=== PATIENT | male | born 1940 | race Caucasian/White ===

== ENCOUNTER 2019-02-22 12:00 | Emergency (ER) | payer MEDICARE, OTHER ==
[2019-02-22] MEDS ORDERED: Sodium Chloride 0.9% 10 ML Syringe FLUSH PRN (12:15)
[2019-02-22] MEDS ORDERED: Famotidine 20 MG/2 ML SDV IVPUSH ONE (12:15)
--- NOTE | 2019-02-22 12:15 | EDM.PDOC ---
ED HPI GENERAL MEDICAL PROBLEM - General Chief Complaint: Cardiovascular Problem Stated Complaint: shortness of breath Time Seen by Provider: 02/22/19 12:00 Source of Information: Reports: Patient. Denies: Old Records (No [facility] records available) History Limitations: Reports: No Limitations - History of Present Illness INITIAL COMMENTS - FREE TEXT/NARRATIVE: Patient drove himself to the emergency room via private automobile for evaluation of progressive nonspecific dyspnea during the last 2 days known history of significant chronic anemia possibly secondary to his renal disease and iron deficiency with negative recent workup as below. He believes that his symptoms are based on his anemia and is visiting the area from [place] at this time. The patient denies any chest pain/pressure, heart flutter, orthostasis, orthopnea, diaphoresis, paresthesias, or any other anginal-type symptoms, however note dyspnea and decreased exercise tolerance with occasional intermittent dizziness during the last couple of days as above. No recent history of abdominal pain, heartburn, nausea, diarrhea, melena, gross hematochezia, or any food intolerance, including fatty foods, etc., although he does have chronic dark stools secondary to his iron supplementation. The patient also denies any recent fever, cough, wheezing, etc.. He denies any gross hematuria, colic, or other UTI symptoms. The patient also denies any recent fever, cough, wheezing, dyspnea, etc.. No apparent pain or other discomfort at this time. Onset: Gradual Duration: Constant, Getting Worse Location: Reports: Other (No pain) Quality: Reports: Same as Previous Episode Severity: Moderate Improves with: Reports: Rest Worsens with: Reports: Movement (Activity) Context: Reports: Other (As above). Denies: Sick Contact, Trauma Associated Symptoms: Reports: Shortness of Breath. Denies: Confusion, Chest Pain, Diaphoresis, Fever/Chills, Headaches, Loss of Appetite, Malaise, Nausea/ Vomiting, Rash, Syncope, Weakness Treatments REPTILE KEEPER: Reports: Other (see below) (None) - Related Data Allergies Allergy/AdvReac Type Severity Reaction Status Date / Time No Known Allergies Allergy Verified 02/22/19 12:14 Home Meds: Home Meds Acarbose [Precose] 0.5 tab PO BID 02/22/19 [History] Acetaminophen 2 tab PO Q6HR PRN 02/22/19 [History] Aspirin [Halfprin] 81 mg PO DAILY 02/22/19 [History] Atenolol 1 tab PO DAILY 02/22/19 [History] Calcium Carbonate/Vitamin D3 [Os-Wisam 500+D] 1 cap PO DAILY 02/22/19 [History] Carboxymethylcellulose Sodium [Refresh Liquigel 1%] 1 drop EYEBOTH Q4HR PRN [History] Ergocalciferol (Vitamin D2) [Vitamin D2] 1 cap PO WEEKLY 02/22/19 [History] Febuxostat [Uloric] 1 tab PO DAILY 02/22/19 [History] Furosemide 80 mg PO BID 02/22/19 [History] Insulin Isophane NPH, Human [NovoLIN N] 10 units SUBCUT BID 02/22/19 [History] Iron Polysaccharide Complex [Pro Fe] 1 cap PO DAILY 02/22/19 [History] Linagliptin [Tradjenta] 1 tab PO DAILY 02/22/19 [History] Nitroglycerin [Nitrostat] 0.4 mg SL ASDIRECTED 02/22/19 [History] Omeprazole 20 mg PO BIDAC 02/22/19 [History] Prednisolon/Gatiflox/Bromfenac [Pred 1%-Gati 0.5%-Bromf 0.075%] 1 drop EYEBOTH DAILY 02/22/19 [History] Vit A/Vit C/Vit E/Zinc/Copper [Preservision] 1 cap PO DAILY 02/22/19 [History] atorvaSTATin Calcium [Atorvastatin Calcium] 80 mg PO ACDINNER 02/22/19 [History] Past Medical History HEENT History: Reports: Cataract, Hard of Hearing, Impaired Vision, Macular Degeneration, Other (See Below). Denies: Allergic Rhinitis, Glaucoma, Otitis Media, Retinal Detachment Other HEENT History: Patient wears glasses. Bilateral hearing aid therapy. No diabetic retinopathy. Cardiovascular History: Reports: Arrhythmia, CAD, Heart Failure, Heart Murmur, High Cholesterol, Hypertension, Pacemaker, Other (See Below). Denies: Afib, Aneurysm, Blood Clots/VTE/DVT, Bypass, OK, PTCA, PVD, Stents, Syncope Other Cardiovascular History: Pacemaker required secondary to complications from aortic valve replacement as below with some type of arrhythmia? Bradycardia. Chronic dependent edema. Respiratory History: Reports: Bronchitis, Recurrent, COPD, Intubation, Previous , Other (See Below). Denies: Asthma, Intubation, Difficult, PE, Pneumothorax, Sleep Apnea, TB Other Respiratory History: Multiple previous refractions including multiple left rib fractures in the past and right-sided rib fracture in June 2018. Gastrointestinal History: Reports: Colon Polyp, Diverticulosis, Gastritis, GERD , GI Bleed, PUD, Other (See Below). Denies: Celiac Disease, Cholelithiasis, Chronic Constipation, Chronic Diarrhea, Fecal Incontinence, Hepatitis, Hiatal Hernia, Inflammatory Bowel Disease, Irritable Bowel Syndrome, Jaundice, Pancreatitis Other Gastrointestinal History: Recurrent duodenal cultures requiring both previous cauterizations and surgeries in the past since August 1999 and September 1999 with subsequent resolution however recurrent GI bleeds since 2013 as below. Unknown type of recurrent colonic polyps with last colonoscopy in September 2017 showing no recurrence. Genitourinary History: Reports: BPH, Chronic Renal Insuffiency, Diabetic Nephropathy, Prostate Disorder, Urinary Incontinence, UTI, Recurrent, Other ( See Below). Denies: Acute Renal Failure, Renal Calculus, Retention, Urinary, STD Other Genitourinary History: Urinary incontinence after TURP. Incidental prostate cancer at time of TURP with therapy to this point and normal PSAs by patient history. Musculoskeletal History: Reports: Arthritis, Back Pain, Chronic, Fracture, Neck Pain, Chronic, Osteoarthritis, Other (See Below). Denies: Amputation, Gout, Osteoporosis, RA, SLE Other Musculoskeletal History: Left foot fracture 5 and right foot surgery at age 4 with no surgeries required. Right thumb fracture at age 16. Left hip fracture in April 2017 with surgery as below. Bilateral rib fractures as above. Neurological History: Reports: Concussion, CVA, Head Trauma, Neuropathy, Diabetic, Neuropathy, Peripheral, Other (See Below). 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 Skull fracture at age 11. Previous head concussions 7. Psychiatric History: Reports: None. Denies: Abuse, Victim of, ADD, ADHD, Addiction, Anxiety, Depression, Psych Hospitalization(s), Psychosis, PTSD, Suicide Attempt, Suicidal Ideation Endocrine/Metabolic History: Reports: Diabetes, Type II, IDDM, Obesity/BMI 30+, Vitamin D Deficiency. Denies: Diabetes, Gestational, Diabetes Mellitus, Type 3c , Hypothyroidism, Osteopenia, Osteoporosis Hematologic History: Reports: Anemia, Blood Transfusion(s), Iron Deficiency, Other (See Below). Denies: B12 Deficiency, Folic Acid Other Hematologic History: Multiple history of blood transfusions in August 1999 and then again in September 1999 with audible subsequent blood transfusions since 2014 with last Blood transfusion of 3 units on 12/29/18. Immunologic History: Denies: AIDS, HIV, SLE Oncologic (Cancer) History: Reports: Basal Cell Carcinoma, Prostate, Other (See Below). Denies: Colon, Hodgkin's Lymphoma, Leukemia, Lymphoma, Malignant Melanoma, Metastatic, Non-Hodgkin's Lymphoma, Squamous Cell Carcinoma Other Oncologic History: Incidental prostate cancer at time of TURP in about 2013 with no treatment required to this point as above. Extensive excision of unknown type of skin cancer in about 2013 with basal cell carcinoma removed from the face in about 2009. Dermatologic History: Reports: Seborrheic Dermatitis. Denies: Eczema, Psoriasis - Infectious Disease History Infectious Disease History: Reports: Chicken Pox, Measles. Denies: C-Difficile , Mononucleosis, MRSA, Mumps, Pertussis (Whooping Cough), Rheumatic Fever, Rubella, Scarlet Fever, Shingles, TB, VRE - Past Surgical History Head Surgeries/Procedures: Reports: None HEENT Surgical History: Reports: Adenoidectomy, Cataract Surgery, Oral Surgery, Tonsillectomy, Other (See Below). Denies: Eye Surgery, Laser Surgery, LASIK, Myringotomy w Tube(s), Naso-Sinus Surgery Other HEENT Surgeries/Procedures: Right cataract surgery on 01/09/19 with left cataract surgery on 01/23/19. Complete teeth extraction with complete dentures uppers and lowers. Tonsillectomy and adenoidectomy at age 6. Cardiovascular Surgical History: Reports: Pacer, Valve Replacement, Other (See Below) Other Cardiovascular Surgeries/Procedures: Aortic valve replacement with prosthetic bovine valve with postoperative arrhythmia requiring pacemaker placement with both surgeries on 10/03/17. Respiratory Surgical History: Reports: None. Denies: Thoracentesis GI Surgical History: Reports: Appendectomy, Colonoscopy, EGD, Polypectomy, Other (See Below). Denies: Cholecystectomy, Hernia, Abdominal, Hernia, Inguinal , Hernia Repair/Other Other GI Surgeries/Procedures: Appendectomy at age 10 Multiple previous EGDs with last EGD on 12/29/18. Videoscopic "pill" GI evaluation on 01/30/19. Multiple cauterizations of duodenal ulcers initially in August and then again in September 1999 with subsequent procedures required since 2013 including surgical clip in 2015. Multiple previous colonoscopies requiring polypectomies as above with last colonoscopy in September 2017, which was clear. Male Surgical History: Reports: TURP-Transurethral Resection of Prostate, Other (See Below). Denies: Circumcision, Prostate Biopsy, Vasectomy Other Male Surgeries/Procedures: TURP in 2013. Endocrine Surgical History: Reports: None. Denies: Thyroid Biopsy Neurological Surgical History: Reports: None. Denies: C-Spine, Discectomy, Laminectomy, Lumbar Spine, Sacral Spine, Spinal Fusion, Thoracic Spine, Vertebroplasty Musculoskeletal Surgical History: Reports: Arthroscopic Knee, Arthroscopic Procedure, Hip Replacement, Joint Replacement, Other (See Below). Denies: Carpal Tunnel, Ganglion Cyst, Knee Replacement, ORIF, Shoulder Surgery Other Musculoskeletal Surgeries/Procedures:: Left arthroscopic knee surgery in 1976. Left hip TEP secondary to hip fracture in April 2017. Oncologic Surgical History: Reports: Other (See Below) Other Oncologic Surgeries/Procedures: Multiple skin excisions for skin cancer as above. Dermatological Surgical History: Reports: Skin Biopsy, Other (See Below) Other Dermatological Surgeries/Procedures: Skin excisions as above. - Past Imaging History Past Imaging History: Reports: Other (See Below) (Bone marrow needle aspiration and biopsy in 1981 for unknown reason.) - History Comment History Comment: Agent [place] exposure. Social & Family History - Family History Cardiac: Reports: Other (See Below) Other Cardiac Family History: Son with unknown type of respiratory and cardiac complications from his therapy for lymphoma as below. Respiratory: Reports: Other (See Below) Other Respiratory Family Hisory: As above Oncologic: Reports: Hodgkin's Lymphoma, Lymphoma, Other (See Below) Other Oncologic Family History: Son with Hodgkin's lymphoma at age 15 treated with radiation and chemotherapy with subsequent development of Burkitt's lymphoma and large B-cell lymphoma, which was fatal at age 52 with additional apparent secondary respiratory and cardiac complications. - Tobacco Use Smoking Status *Q: Former Smoker Tobacco Use Within Last Twelve Months: Cigarettes Years of Tobacco use: 41 Packs/Tins Daily: 3 Packs/Tins Daily Comment: Started smoking at age 19 and stop at age 60 with maximum use of 3 packs per day. - Living Situation & Occupation Living situation: Reports: (1959, 4 children) Occupation: Retired ED ROS GENERAL - Review of Systems Review Of Systems: ROS reveals no pertinent complaints other than HPI. ED EXAM, GENERAL - Physical Exam Exam: See Below Exam Limited By: No Limitations General Appearance: Alert, WD/WN, No Apparent Distress Eye Exam: Bilateral Eye: EOMI, Normal Inspection (No nystagmus. Patient wearing glasses. Mild bilateral arcus senilis.), PERRL Ears: Normal External Exam, Hearing Loss (Effective bilateral hearing aides). No: Hearing Grossly Normal Nose: Normal Inspection, Normal Mucosa, No Blood Throat/Mouth: Normal Lips, Normal Oropharynx, Normal Voice, No Airway Compromise. No: Normal Teeth (Plate dentures uppers and lowers), Dysphagia, Perioral Cyanosis Head: Atraumatic, Normocephalic. No: Facial Swelling, Facial Tenderness, Sinus Tenderness Neck: Supple, Non-Tender, Full Range of Motion, Carotid Bruit (2-3/6 bilateral carotid bruits versus transmitted heart sounds) Respiratory/Chest: No Respiratory Distress, No Accessory Muscle Use, Chest Non- Tender, Rales (Mild bilateral basilar rales). No: Rhonchi, Wheezing, Pleural Rub, Retractions Cardiovascular: Normal Peripheral Pulses, Regular Rate, Rhythm, No Gallop, No JVD, No Rub, Systolic Murmur (2/6 KENYA of the aortic valve with 1/6 KENYA of the mitral valve). No: No Edema (Dependent edema as below), Gallop/S3, Gallop/S4, Friction Rub Peripheral Pulses: 1+: Dorsalis Pedis (L), Dorsalis Pedis (R), 2+: Radial (L), Radial (R) GI/Abdominal: Normal Bowel Sounds, Soft, Non-Tender, No Organomegaly, No Distention, No Abnormal Bruit, No Mass, Pelvis Stable, Other (Obese). No: Guarding (Male) Exam: Deferred Rectal (Males) Exam: Normal Rectal Tone, Black Stool, BPH (Mild to moderate), Heme + Stool, Hemorrhoids. No: Bloody Stool, Mass, Prostate Nodule, Tenderness (No Bg space tenderness) Back Exam: Full Range of Motion, Other (Mild kyphosis). No: CVA Tenderness (L) , CVA Tenderness (R), Muscle Spasm, Paraspinal Tenderness, Vertebral Tenderness Extremities: Normal Range of Motion, Non-Tender, Normal Capillary Refill, Pedal Edema (+1+2 bilateral pedal/pretibial edema), Other (Ecchymosis on forearms bilaterally). No: Anaid's Sign Neurological: Alert, Oriented, CN II-XII Intact, Normal Cognition, Normal Gait, Normal Reflexes (Negative Babinski's), No Motor/Sensory Deficits Psychiatric: Normal Affect, Normal Mood Skin Exam: Ecchymosis (As above), Pallor (Moderate). No: Diaphoretic, Jaundice , Petechiae, Wound/Incision Lymphatic: No Adenopathy EKG INTERPRETATION EKG Date: 02/22/19 Time: 12:25 Rhythm: Other (100% paced) Rate (Beats/Min): 96 Comparison: NA - No Prior EKG EKG Interpretation Comments: 100% paced rhythm Course - Vital Signs Last Recorded V/S: Last Vital Signs Temp 36.7 C 02/22/19 12:15 Pulse 60 02/22/19 14:26 Resp 18 02/22/19 14:26 BP 136/54 L 02/22/19 14:26 Pulse Ox 99 02/22/19 14:26 Vital Signs - 24 hr 02/22/19 02/22/19 02/22/19 12:15 13:00 13:23 Temperature [ 36.7 C Temporal] Pulse, 64 65 65 Peripheral [ Left Pulse Oximetry] Respiratory 21 H 18 18 Rate Blood Pressure 139/37 L 130/49 L 110/31 L [Left Upper Arm ] O2 Sat by Pulse 100 96 99 Oximetry 02/22/19 02/22/19 02/22/19 13:41 13:56 14:11 Temperature [ Temporal] Pulse, 62 61 60 Peripheral [ Left Pulse Oximetry] Respiratory 16 19 13 Rate Blood Pressure 122/42 L 110/42 L 114/33 L [Left Upper Arm ] O2 Sat by Pulse 99 99 Oximetry 02/22/19 14:26 Temperature [ Temporal] Pulse, 60 Peripheral [ Left Pulse Oximetry] Respiratory 18 Rate Blood Pressure 136/54 L [Left Upper Arm ] O2 Sat by Pulse 99 Oximetry - Orders/Labs/Meds Orders: Active Orders 24 hr Category Date Time Status Cardiac Monitoring [RC] . DIRECTED Care 02/22/19 12:15 Active EKG Documentation Completion [RC] ASDIRECTED Care 02/22/19 12:15 Active Oxygen Therapy, ED [RC] PRN Care 02/22/19 12:15 Active Peripheral IV Care [RC] . DIRECTED Care 02/22/19 12:15 Active Pulse Oximetry [RC] CONTINUOUS Care 02/22/19 12:15 Active Up With Assistance [RC] PFP Care 02/22/19 12:15 Active Vital Signs [RC] PFP Care 02/22/19 12:15 Active Nothing per Oral Now Diet [DIET] Diet 02/22/19 Breakfast Active Chest 1V Frontal [CR] Stat Exams 02/22/19 12:15 Taken Sodium Chloride 0.9% [Saline Flush] Med 02/22/19 12:15 Active 10 ml FLUSH ASDIRECTED PRN Obtain Past Medical Record [OM.PC] Urgent Oth 02/22/19 12:15 Active Peripheral IV Insertion Adult [OM.PC] Stat Oth 02/22/19 12:15 Ordered Resuscitation Status Stat Resus Stat 02/22/19 12:15 Ordered Medication Orders Sodium Chloride (Saline Flush) 10 ml FLUSH ASDIRECTED PRN PRN Reason: Keep Vein Open Last Admin: 02/22/19 13:12 Dose: 10 ml Labs: Laboratory Tests 02/22/19 02/22/19 02/22/19 Range/Units 12:28 12:28 12:28 WBC 9.7 (4.0-10.2) K/uL RBC 1.93 L (4.33-5.41) M/uL Hgb 5.8 L* (13.1-16.8) g/dL Hct 18.8 L* (39.0-49.0) % MCV 97.4 (84.0-98.0) fL MCH 30.1 (28.2-33.3) pg MCHC 30.9 L (31.7-36.0) g/dL RDW 16.1 H (11.2-14.1) % Plt Count 70 L (150-350) K/uL Neut % (Auto) 74.1 (45.0-80.0) % Lymph % (Auto) 14.1 (10.0-50.0) % Wirt % (Auto) 8.7 (2.0-14.0) % Eos % (Auto) 2.8 (0.0-5.0) % Baso % (Auto) 0.3 (0.0-2.0) % Neut # (Auto) 7.21 H (1.40-7.00) K/uL Lymph # (Auto) 1.37 (0.50-3.50) K/uL Wirt # (Auto) 0.85 (0.00-1.00) K/uL Eos # (Auto) 0.27 (0.00-0.50) K/uL Baso # (Auto) 0.03 (0.00-0.20) K/uL PT 10.4 (9.5-12.0) SEC INR 1.0 APTT 17.2 L (21.0-31.3) SEC D-Dimer, Quantitative 665 H (0-400) ng/mL Sodium (136-145) mmol/L Potassium (3.5-5.1) mmol/L Chloride (98-107) mmol/L Carbon Dioxide (21.0-32.0) mmol/L BUN (7-18) mg/dL Creatinine (0.51-1.17) mg/dL Est Cr Clr Drug Dosing mL/min Estimated GFR (MDRD) mL/min Glucose (74-106) mg/dL Lactic Acid (0.4-2.0) mmol/L Uric Acid (2.6-7.2) mg/dL Calcium (8.5-10.1) mg/dL Magnesium (1.8-2.4) mg/dL Total Bilirubin (0.2-1.0) mg/dL AST (15-37) U/L ALT (12-78) U/L Alkaline Phosphatase (46-116) IU/L Creatine Kinase (26-308) U/L Creatine Kinase Index (0.0-2.5) % CK-MB (CK-2) (0.00-3.60) ng/mL Troponin I (0.000-0.056) ng/mL NT-Pro-B Natriuret Pep (0-125) pg/mL Total Protein (6.4-8.2) g/dL Albumin (3.4-5.0) g/dL TSH, Ultra Sensitive (0.358-3.740) mIU/mL 02/22/19 02/22/19 Range/Units 12:28 12:28 WBC (4.0-10.2) K/uL RBC (4.33-5.41) M/uL Hgb (13.1-16.8) g/dL Hct (39.0-49.0) % MCV (84.0-98.0) fL MCH (28.2-33.3) pg MCHC (31.7-36.0) g/dL RDW (11.2-14.1) % Plt Count (150-350) K/uL Neut % (Auto) (45.0-80.0) % Lymph % (Auto) (10.0-50.0) % Wirt % (Auto) (2.0-14.0) % Eos % (Auto) (0.0-5.0) % Baso % (Auto) (0.0-2.0) % Neut # (Auto) (1.40-7.00) K/uL Lymph # (Auto) (0.50-3.50) K/uL Wirt # (Auto) (0.00-1.00) K/uL Eos # (Auto) (0.00-0.50) K/uL Baso # (Auto) (0.00-0.20) K/uL PT (9.5-12.0) SEC INR APTT (21.0-31.3) SEC D-Dimer, Quantitative (0-400) ng/mL Sodium 136 (136-145) mmol/L Potassium 4.3 (3.5-5.1) mmol/L Chloride 100 (98-107) mmol/L Carbon Dioxide 30.2 (21.0-32.0) mmol/L BUN 63 H (7-18) mg/dL Creatinine 1.81 H (0.51-1.17) mg/dL Est Cr Clr Drug Dosing 29.86 mL/min Estimated GFR (MDRD) 36 mL/min Glucose 161 H (74-106) mg/dL Lactic Acid 1.4 (0.4-2.0) mmol/L Uric Acid 6.3 (2.6-7.2) mg/dL Calcium 8.6 (8.5-10.1) mg/dL Magnesium 2.3 (1.8-2.4) mg/dL Total Bilirubin 0.3 (0.2-1.0) mg/dL AST 12 L (15-37) U/L ALT 15 (12-78) U/L Alkaline Phosphatase 74 (46-116) IU/L Creatine Kinase 35 (26-308) U/L Creatine Kinase Index 4.6 H (0.0-2.5) % CK-MB (CK-2) 1.60 (0.00-3.60) ng/mL Troponin I 0.012 (0.000-0.056) ng/mL NT-Pro-B Natriuret Pep 1670 H (0-125) pg/mL Total Protein 6.0 L (6.4-8.2) g/dL Albumin 2.8 L (3.4-5.0) g/dL TSH, Ultra Sensitive 2.032 (0.358-3.740) mIU/mL Meds: Medications Generic Name Dose Route Start Last Admin Trade Name Freq PRN Reason Stop Dose Admin Sodium Chloride 10 ml 02/22/19 12:15 02/22/19 13:12 Saline Flush FLUSH 10 ml ASDIRECTED PRN Administration Keep Vein Open Discontinued Medications Generic Name Dose Route Start Last Admin Trade Name Freq PRN Reason Stop Dose Admin Famotidine 40 mg 02/22/19 12:15 02/22/19 13:14 Pepcid IVPUSH 02/22/19 12:16 40 mg ONETIME ONE Administration Pantoprazole Sodium 40 mg 02/22/19 12:53 02/22/19 13:14 Protonix Iv IVPUSH 02/22/19 12:54 40 mg ONETIME ONE Administration - Radiology Interpretation Free Text/Narrative:: quality assurance monitor final shows demand pacemaker with only very occasional independent rhythm with heart rate ranging the 60s to 90s with no other ectopy or arrhythmia. Chest x-ray, portable, shows moderately elevated right hemidiaphragm with mild aortic valve calcification and prominence of aortic arch. Mild COPD changes with atelectasis of the upper lobes bilaterally right greater than left with no pulmonary infiltrates, pneumothorax, etc. Mild centralized CHF and/or pulmonary infiltrates. Pacemaker noted. No evidence of free air. Departure - Departure Time of Disposition: 14:45 Disposition: DC/Tfer to Acute Hospital 02 Reason for Transfer *Q: Other (No chest pain or anginal symptoms with cardiology consultation as below.) Condition: Fair Clinical Impression: Peptic ulcer disease with hemorrhage, IDDM (insulin dependent diabetes mellitus ), Elevated d-dimer, Hypoalbuminemia Anemia Qualifiers: Anemia type: other cause Other causes of anemia: chronic disease, other Qualified Code(s): D63.8 - Anemia in other chronic diseases classified elsewhere CHF (congestive heart failure) Qualifiers: Heart failure type: unspecified Heart failure chronicity: acute on chronic Qualified Code(s): I50.9 - Heart failure, unspecified Diabetic nephropathy Qualifiers: Diabetes mellitus type: type 2 Qualified Code(s): E11.21 - Type 2 diabetes mellitus with diabetic nephropathy Referrals: PCP,Unobtain [Primary Care Provider] - Forms: ED Department Discharge, Interfacility Transfer EMTALA - Problem List & Annotations (1) Anemia SNOMED Code(s): 900881044 Code(s): D64.9 - ANEMIA, UNSPECIFIED Status: Acute Priority: High Current Visit: Yes Onset Date: 02/22/19 Annotation/Comment:: Severe symptomatic anemia with 2 day history of increasing dyspnea and decreased exercise tolerance as above. Note long history of recurrent duodenal ulcers and upper GI bleeds with additional history of iron deficiency and diabetic nephropathy contributing to his chronic anemia. Telephone consultation at 13:[address] Marley, emergency room physician at [facility], who does accept the patient for probable direct admission and further GI consultation, etc., with no further treatment recommendations given. She does agree to contact the hospitalist for me concerning this transfer and admission. Extreme difficulty in obtaining IV sites with multiple nurses attempting access with high-dose IV Pepcid and IV Protonix given for treatment and as GI prophylaxis. Vital signs and clinical findings were stable at time of transfer. In the interest of expediting patient transfer blood transfusion was not initiated in this facility, which is reasonable secondary to chronic nature of patient's symptoms and chronic anemia as above, with Dr. Marley aware of this prior to transfer. Ambulance transfer with design and sales consultant accompaniment on telemetry. Qualifiers: Anemia type: other cause Other causes of anemia: chronic disease, other Qualified Code(s): D63.8 - Anemia in other chronic diseases classified elsewhere (2) Peptic ulcer disease with hemorrhage SNOMED Code(s): 06665686 Code(s): K27.4 - CHRONIC OR UNSP PEPTIC ULCER, SITE UNSP, WITH HEMORRHAGE Status: Acute Priority: High Current Visit: Yes Onset Date: ~02/20/19 Annotation/Comment:: Probable recurrent upper GI bleed with previous history of recurrent duodenal ulcers and multiple cauterization procedures, transfusions, etc. as above. High-dose IV Pepcid and IV Protonix given as GI prophylaxis. (3) Elevated d-dimer SNOMED Code(s): 357756004 Code(s): R79.89 - OTHER SPECIFIED ABNORMAL FINDINGS OF BLOOD CHEMISTRY Status: Acute Priority: High Current Visit: Yes Onset Date: 02/22/19 Annotation/Comment:: Inadequate IV to perform CTA scan of the chest. No clinical evidence of PE or DVT. Further workup by accepting providers depending on his clinical course. No further anticoagulation at this time secondary to probable upper GI bleed as above. (4) CHF (congestive heart failure) SNOMED Code(s): 75481757 Code(s): I50.9 - HEART FAILURE, UNSPECIFIED Status: Chronic Priority: Medium Current Visit: Yes Annotation/Comment:: Mild CHF by clinical exam and today's chest x-ray with moderately elevated BNP and mild secondary change in troponin I, which is still normal. CK index artifactually elevated secondary to normal low baseline CK. No chest pain or anginal complaints. Cardiology consultation, echocardiogram, etc. depending on his clinical course. IV fluids were not initiated in the emergency room secondary to his CHF and stable clinical exam/vitals. Qualifiers: Heart failure type: unspecified Heart failure chronicity: acute on chronic Qualified Code(s): I50.9 - Heart failure, unspecified (5) Diabetic nephropathy Status: Chronic Priority: Medium Current Visit: Yes Annotation/Comment:: Continue to observe closely by accepting providers. Qualifiers: Diabetes mellitus type: type 2 Qualified Code(s): E11.21 - Type 2 diabetes mellitus with diabetic nephropathy (6) Hypoalbuminemia SNOMED Code(s): 852780544 Code(s): E88.09 - OTH DISORDERS OF PLASMA-PROTEIN METABOLISM, NEC Status: Acute Priority: Medium Current Visit: Yes Onset Date: 02/22/19 Annotation/Comment:: Observe for now. (7) IDDM (insulin dependent diabetes mellitus) SNOMED Code(s): 46340851 Code(s): E11.9 - TYPE 2 DIABETES MELLITUS WITHOUT COMPLICATIONS; Z79.4 - [employer] (CURRENT) USE OF INSULIN Status: Acute Current Visit: Yes - Problem List Review Problem List Initiated/Reviewed/Updated: Yes - My Orders Last 24 Hours: My Active Orders 02/22/19 12:15 Cardiac Monitoring [RC] . DIRECTED EKG Documentation Completion [RC] ASDIRECTED Oxygen Therapy, ED [RC] PRN Peripheral IV Care [RC] . DIRECTED Pulse Oximetry [RC] CONTINUOUS Up With Assistance [RC] PFP Vital Signs [RC] PFP Chest 1V Frontal [CR] Stat Sodium Chloride 0.9% [Saline Flush] 10 ml FLUSH ASDIRECTED PRN Obtain Past Medical Record [OM.PC] Urgent Peripheral IV Insertion Adult [OM.PC] Stat Resuscitation Status Stat 02/22/19 Breakfast Nothing per Oral Now Diet [DIET] - Assessment/Plan Last 24 Hours: My Active Orders 02/22/19 12:15 Cardiac Monitoring [RC] . DIRECTED EKG Documentation Completion [RC] ASDIRECTED Oxygen Therapy, ED [RC] PRN Peripheral IV Care [RC] . DIRECTED Pulse Oximetry [RC] CONTINUOUS Up With Assistance [RC] PFP Vital Signs [RC] PFP Chest 1V Frontal [CR] Stat Sodium Chloride 0.9% [Saline Flush] 10 ml FLUSH ASDIRECTED PRN Obtain Past Medical Record [OM.PC] Urgent Peripheral IV Insertion Adult [OM.PC] Stat Resuscitation Status Stat 02/22/19 Breakfast Nothing per Oral Now Diet [DIET] Assessment:: As above Plan: As above. Extensive precautions were given to the patient, who is in agreement with the treatment plan. Ambulance transfer as above.
[2019-02-22] MEDS ORDERED: Pantoprazole 40 MG Vial IVPUSH ONE (12:53)
== END 2019-02-22 14:45 ==
LOC: LL.ED 12:00
DX: I13.0 Hypertensive heart and chronic kidney disease with heart failure and stage 1 through stage 4 chronic kidney disease, or unspecified chronic kidney disease (principal); I50.9 Heart failure, unspecified; N18.9 Chronic kidney disease, unspecified; E11.22 Type 2 diabetes mellitus with diabetic chronic kidney disease; E11.21 Type 2 diabetes mellitus with diabetic nephropathy; D63.8 Anemia in other chronic diseases classified elsewhere; K27.4 Chronic or unspecified peptic ulcer, site unspecified, with hemorrhage; E88.09 Other disorders of plasma-protein metabolism, not elsewhere classified; R79.1 Abnormal coagulation profile; I25.10 Atherosclerotic heart disease of native coronary artery without angina pectoris; J44.9 Chronic obstructive pulmonary disease, unspecified; K21.9 Gastro-esophageal reflux disease without esophagitis; E66.9 Obesity, unspecified; Z87.891 Personal history of nicotine dependence; Z79.4 Long term (current) use of insulin; Z79.82 Long term (current) use of aspirin; Z79.899 Other long term (current) drug therapy; Z95.0 Presence of cardiac pacemaker; Z68.30 Body mass index [BMI] 30.0-30.9, adult
CPT/HCPCS: 36415; 71045; 80053; 82272; 82550; 82553; 83605; 83735; 83880; 84443; 84484; 84550; 85025; 85379; 85610; 85730; 93005; 96374; 96375; 99285-25; C9113; J3490